=== PATIENT | male | born 1960 | race Caucasian/White ===

== ENCOUNTER 2019-02-25 04:20 | Inpatient (IN) | payer SELFPAY ==
[2019-02-25] MEDS ORDERED: Diltiazem 125 MG/25 ML ONE (04:38)
[2019-02-25 04:49] LABS: #Eosinphils 0.1 thou/uL (0.0-0.7); #Lymphocytes 2.2 thou/uL (1.20-3.40); #Monocytes 0.7 thou/uL (0.11-0.59); #Neutrophils 3.1 thou/uL (1.40-6.50); %Basophils 0.5 % (0.0-1.0); %Eosinophils 1.3 % (0.0-10.0); %Lymphocytes 36.2 % (21.0-51.0); %Monocytes 11.6 % (0.0-10.0); %Neutrophils 50.3 % (42.0-75.0); Hemoglobin 14.2 g/dL (14.0-18.0); Mean Corpuscular Hemoglobin 29.3 pg (27.0-31.0); Mean Corpuscular Volume 86.3 fL (78.0-98.0); Mean Platelet Volume 7.4 fL (7.4-10.4); Platelet Count 218 thou/uL (130-400); RBC Distribution Width 12.9 % (11.5-14.5); Red Blood Cell (RBC) Count 4.83 mill/uL (4.70-6.10); White Blood Cell (WBC) Count 6.2 thou/uL (4.8-10.8)
[2019-02-25 05:05] LABS: ALT (SGPT) 16 U/L (8-55); AST (SGOT) 16 U/L (5-34); Alkaline Phosphatase 81 U/L (40-110); Anion Gap 11 mmol/L (10-20); BUN (Urea Nitrogen) 20 mg/dL (8.4-25.7); Bilirubin, Total 0.3 mg/dL (0.2-1.2); Calc. Creatinine Clearance 0 mL/min (70-130); Carbon Dioxide 24 mmol/L (22-29); Chloride 105 mmol/L (98-107); Estimated GFR-MDRD 80; Globulin 2.7 g/dL (2.4-3.5); Glucose 128 mg/dL (70-105); Protein, Total 6.7 g/dL (6.0-8.3); Sodium 136 mmol/L (136-145)
[2019-02-25 07:34] VITALS: BMI 35.6
--- NOTE | 2019-02-25 08:16 | RAD ---
PORTABLE UPRIGHT FRONTAL CHEST RADIOGRAPH: DATE: 02/25/2019. COMPARISON: None. HISTORY: Pain. FINDINGS: The lungs are clear. Heart and mediastinal contours are unremarkable. IMPRESSION: No acute findings. POS: TPC
[2019-02-25 08:22] LABS: Troponin I 0.018 ng/mL (< 0.028)
[2019-02-25] MEDS ORDERED: Acetaminophen 325 MG TAB PO PRN (08:59)
[2019-02-25] MEDS ORDERED: Bisacodyl 5 MG TAB PO PRN (08:59)
[2019-02-25] MEDS ORDERED: Enoxaparin Sodium 40 MG/0.4 ML SYRINGE SC SCH (09:15)
[2019-02-25] MEDS ORDERED: Enoxaparin Sodium 40 MG/0.4 ML SYRINGE ONE (10:13)
--- NOTE | 2019-02-25 19:05 | DIS ---
DATE OF ADMISSION: 02/25/2019 DATE OF DISCHARGE: 02/25/2019 PRIMARY CARE PROVIDER: None. DISCHARGE DIAGNOSIS: Atrial fibrillation with rapid ventricular response. HOSPITAL COURSE: Mr. Howard is a pleasant 58-year-old gentleman, who was admitted to [facility] on February 25, 2019, for atrial fibrillation with rapid ventricular response. Please refer to my history and physical note dated February 25, 2019, for further details. He went into sinus rhythm after receiving diltiazem. He was seen by Cardiology Service, Dr. Hanna. He has been started on apixaban 5 mg 2 times a day and has been cleared for discharge by Cardiology Service. He will follow up with Cardiology Service as outpatient. He has been advised heart healthy diet and activity as tolerated. He has also been advised to follow up with his primary care provider in 3 days time. The patient verbalized understanding of instructions. Many thanks for allowing me to participate in Mr. Howard's care. Please feel free to contact me with any questions or concerns. DISCHARGE DESTINATION: Home. Job ID: [id number]
[2019-02-25 19:18] VITALS: BP 128/67; TEMP 98
[2019-02-25] MEDS ORDERED: Apixaban 5 MG TAB PO SCH (21:00)
--- NOTE | 2019-02-26 00:28 | CON ---
DATE OF CONSULTATION: 02/25/2019 INDICATION FOR CONSULTATION: 58-year-old patient with atrial fibrillation, new onset. 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 He then went to a nearby [facility] and was found to have heart rate in the 150s and blood pressure 175/106. He was given IV diltiazem and then transferred to the emergency room. He then converted to normal sinus rhythm. He tells me he has had episodes like this in the past over the last couple of years they have started, they last usually for a few seconds, have not lasted this long in the past. He did have a stress test about [address] Madsen after he was found to have bradycardia on a routine evaluation. He said he was a runner and his heart rate is mainly in the 40s and 50s. He has had some occasional chest tightness in the past, but has been several years ago. He had actually denied it, but his had reminded him that he did have some. He has also had no other significant problems from a heart standpoint. He has had no history of coronary artery disease or hypertension or diabetes in the past and has no significant risk factors or coronary artery disease. At this time, he has remained in sinus rhythm. EKG did not show any significant changes. His laboratory data shows troponin I to be negative. There was no ischemic changes when the patient was in atrial fibrillation. PAST MEDICAL HISTORY: Significant for some right knee injuries. He has had a cyst removed from his foot. He has had no other significant past medical history. REVIEW OF SYSTEMS: A 12-point review of system is unremarkable. He says he wears glasses and he has had occasional palpitations as noted, which may have been some SVT or short runs of atrial fibrillation. He has had no other significant episodes. He denied any pulmonary, GI, or musculoskeletal complaints except was noted in the history of present illness. Neurologically, no history of seizures or syncope. MEDICATIONS: Prior to admission were none. In the emergency room, he has been given IV diltiazem and then converted to sinus rhythm and this medication was then stopped. His medications at this time include Lovenox. He was given a dose of 40 mg subcu for DVT prophylaxis. He was also given Tylenol and some Dulcolax. ALLERGIES: NONE. FAMILY HISTORY: Noncontributory. SOCIAL HISTORY: He has no alcohol or tobacco abuse. 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 He previously worked in the [employer]. PHYSICAL EXAMINATION: GENERAL: Reveals a well-developed, well-nourished gentleman, who is in no acute distress. He is very pleasant. VITAL SIGNS: Blood pressure 132/72. He is afebrile. Heart rate is 50 and regular, respiratory rate is 14, O2 saturation is 98%. HEENT: Shows head to be normocephalic and atraumatic. Carotid pulses are present. There were no bruits. CHEST: Clear to auscultation. CARDIOVASCULAR: Reveals regular rate and rhythm with normal S1, S2. There were no significant murmurs, heaves, thrills, bruits, or rubs. ABDOMEN: Shows obesity with positive bowel sounds. No organomegaly or masses noted. Femoral pulses are present. EXTREMITIES: No clubbing, cyanosis, or edema. Pedal pulses are present. NEUROLOGIC: The patient appears to be fully intact. He has normal strength and normal tone. EKG again shows sinus bradycardia at this time, but no other significant abnormalities were noted. LABORATORY DATA: Shows a sodium of 136, BUN was 20, creatinine 0.96. Blood sugar was 128. Troponin I is negative for any ischemia or myocardial infarction. BNP was 27.9. TSH was 2.2. WBC of 6.2, hemoglobin 14.2, and platelet count was 218,000. IMPRESSION: 1. Atrial fibrillation in otherwise healthy gentleman, which is now resolved after IV diltiazem. It is somewhat difficult to give this patient medications to slow the heart rate since the heart rates were in the 40s and 50s. We could try Multaq to see whether or not this will control the heart rate or either just to see whether or not he has a recurrence of atrial fibrillation. I would suggest he have an event monitor placed for at least seven days and we will continue to monitor this. He may be having more episodes of atrial fibrillation and he realizes he most likely also has sleep apnea and this should be evaluated. If so, he may need a CPAP mask. 2. History of obesity. He needs to lose some weight. He understands this and maybe will try by diet. 3. History of sinus bradycardia. He has had bradycardia for many years and he is completely asymptomatic. If the patient is eager to be discharged from the hospital, I would suggest he be discharged from the hospital. He can undergo as an outpatient echocardiogram. We will review the monitor. He also will need to undergo some type of stress testing to rule out evidence for underlying ischemia as a possible etiology of atrial fibrillation, but also suggest he undergo a sleep study to rule out evidence of sleep apnea is a possible etiology also with atrial fibrillation and also obesity may play a role in his atrial fibrillation. At this time, the patient appears to be stable for discharge. He is of sound mind and will be able to report back to an ENT service station or an ENT station or report to the emergency room should he develop further symptoms. Would continue him on an oral anticoagulation for at least 2 to 4 weeks since he did have the episode of atrial fibrillation. We are uncertain whether or not he may be having other intermittent episodes, but he does have a history of atrial fibrillation on this admission. I would continue that medication for a month. If there has been no further atrial fibrillation, then we will discontinue the medication. Job ID: [id number]
[2019-02-26] MEDS ORDERED: Enoxaparin Sodium 40 MG/0.4 ML SYRINGE SC SCH (09:00)
--- NOTE | 2019-03-01 07:16 | HP ---
PRIMARY CARE PROVIDER: None. CHIEF COMPLAINT: Palpitations. HISTORY OF PRESENT ILLNESS: Mr. Howard is a pleasant 58-year-old gentleman, who was seen at [facility] on 02/25/2019. The patient reports on and off palpitations in the past. Last night around 2 a.m., he woke up to go to the bathroom. He started having palpitations. He had to take deep breaths. He denies any chest pain. He denies any lightheadedness. He denies any shortness of breath. EMS was called because of palpitations. He was found to be in atrial fibrillation with rapid ventricular response. He received Cardizem with improvement in symptoms. Hospitalist Service has been consulted by emergency room physician for admission to the hospital. REVIEW OF SYSTEMS: All systems were reviewed and found to be negative except for the pertinent positives mentioned above. PAST MEDICAL HISTORY: None. PAST SURGICAL HISTORY: Cyst removal from foot. SOCIAL HISTORY: The patient denies tobacco use, alcohol use or recreational drug use. FAMILY HISTORY: Myocardial infarction in his mother. ALLERGIES: NO KNOWN DRUG ALLERGIES. HOME MEDICATIONS: None. PHYSICAL EXAMINATION: GENERAL: On examination, Mr. Howard is awake and alert, not in acute distress. VITAL SIGNS: Blood pressure is 152/70, pulse is 52, respiratory rate is 16, and oxygen saturation is 98% on room air. He is afebrile. EYES: No scleral icterus, no conjunctival pallor. ENT: Moist mucosal membranes. No oropharyngeal erythema or exudates. NECK: Supple, nontender, trachea is midline. RESPIRATORY: Accessory muscles of breathing are not active. Chest wall movements are symmetric bilaterally. LUNGS: Clear to auscultation without wheeze, rhonchi or crepitations. CARDIOVASCULAR: S1 and S2 are heard, . Peripheral pulses palpable. ABDOMEN: Soft, nontender, bowel sounds are heard. NEUROLOGIC: Cranial nerves 2 through 12 are intact. MUSCULOSKELETAL: Power is 5/5 in all 4 extremities. SKIN: No rashes or subcutaneous nodules. LYMPHATIC: No cervical lymphadenopathy. PSYCHIATRIC: Normal mood, normal affect, the patient is oriented to person, place, and time. LABORATORY DATA: Mr. Howard's labs and investigations were reviewed. I reviewed his electrocardiogram, which shows atrial fibrillation with rapid ventricular response, no ST changes to suggest an acute coronary syndrome. This was done at 04:34 a.m. Current site monitor shows sinus bradycardia. Chest x-ray does not show any pulmonary infiltrates. He has an unremarkable CBC, unremarkable comprehensive metabolic profile, and troponin-I that is negative x3. BNP and TSH are normal. ASSESSMENT AND PLAN: Mr. Howard is a pleasant 58-year-old gentleman, who was seen at [facility] on 02/25/2019. His problem list includes: 1. Atrial fibrillation with rapid ventricular response: He presented with atrial fibrillation with rapid ventricular response. After receiving Cardizem, he cardioverted to sinus bradycardia. He will be admitted to the hospital and monitored on telemetry. Cardiology Service will be consulted for opinion and help with management. 2D echocardiogram will be requested. His CHADS2 and CHADS2-Vasc scores are 0. 2. Deep venous thrombosis prophylaxis with Lovenox. Many thanks for allowing me to participate in Mr. Howard's care. Please feel free to contact me with any questions or concerns. LEVEL OF RISK: Low. LEVEL OF COMPLEXITY: Low. Job ID: [id number]
== END 2019-02-25 19:25 | disposition home or self-care (01) | DRG 310 ==
LOC: ERS 04:20 → ERHOLD 05:37 → 2NO 13:09
PROVIDERS: ADMIT Internal Medicine; ATTEND Internal Medicine
DX: I48.91 Unspecified atrial fibrillation (principal); E66.9 Obesity, unspecified; Z68.35 Body mass index [BMI] 35.0-35.9, adult
CPT/HCPCS: 36415; 71045; 80053; 83880; 84443; 84484; 85025; 93005; 96365; J1650